=== PATIENT | male | born 1940 | race Caucasian/White ===

== ENCOUNTER → 2020-07-13 | Outpatient (CLI) | payer BC ==
[~2020-07-13] VITALS: Ht 182.9 cm; Wt 90.7 kg
[2020-07-13] VITALS (10 sets, daily range): BP systolic 94–168; BP diastolic 60–70
[~2020-07-13] MED LIST: ADULT LOW DOSE81 MG PO; BENTYL 10 MG CA10 M1 PO; FLOMAX0.4 MG PO; LISINOPRIL5 MG PO; NEURONTIN600 MG PO; NITROSTAT0.4 M1 SUBLING; PROBIOTIC-10 11 EACH PO; PROTONIX40 M2 PO; SIMVASTATIN40 MG PO; THERA-M TABLET1 EACH PO; ZANAFLEX4 M1 PO
[2020-07-13 07:54] LABS: HEMATOCRIT 34.8 % (42.0-52.0); HEMOGLOBIN 12.3 gm/dL (14.0-18.0); MCH 33.9 pg (26.0-34.0); MCHC 35.2 g/dL (28.0-37.0); MCV 96.3 fL (80.0-100.0); MPV 6.6 fl. (7.2-11.1); RBC 3.62 mil/uL (4.50-6.00); WBC 7.7 thou/uL (4.0-11.0)
[2020-07-13 08:04] LABS: ALBUMIN 3.5 g/dL (3.4-5.0); ALKALINE PHOSPHATASE 60 U/L (46-116); ANION GAP 9 mmol/L (7-16); BUN 22 mg/dL (7-18); CALCIUM 9.1 mg/dL (8.5-10.1); CHLORIDE 105 mmol/L (98-107); CHOLESTEROL 140 mg/dL (<200); CO2 28 mmol/L (21-32); CREATININE 1.2 mg/dL (0.6-1.3); GLUCOSE 110 mg/dL (70-99); HDL CHOLESTEROL 47 mg/dL (>40); LDL CHOLESTEROL 59 mg/dL (<100); POTASSIUM 4.1 mmol/L (3.5-5.1); SGOT 26 U/L (15-37); SGPT 37 U/L (30-65); SODIUM 142 mmol/L (136-145); TOTAL BILIRUBIN 0.2 mg/dL (<0.1-1.0); TOTAL PROTEIN 6.8 g/dL (6.4-8.2); TRIGLYCERIDE 170 mg/dL (<150); VLDL 34 mg/dL (<40)
[2020-07-13 08:05] LABS: SERUM ASSESSMENT Clear
[2020-07-13 08:06] LABS: APTT 22.2 Seconds (25.0-31.3); PROTIME 10.5 Seconds (9.20-11.50)
--- NOTE | 2020-07-13 10:35 | EKG ---
[place] [address] ELECTROCARDIOGRAM REPORT Name: DENI RUSH Room: [facility]#: [id number] Admission: 07/13/20 Attend Phys: Rickie Santos MD Discharge: Date of : 36 Date of Service: 07/13/20 0747 Report #: [id number] THIS REPORT FOR: //name// [facility] Test Date: 2020-07-13 Test Time: 07:47:44 Pat Name: DENI RUSH Department: Room: Gender: Drilling Supervisor: : 1940 Requested By: Rickie Santos Order Number: [id number] Reading MD: Rickie Santos Measurements Intervals [place] Rate: 62 P: 58 MS: 296 QRS: -32 QRSD: 97 T: 29 QT: 425 QTc: 432 Interpretive Statements Sinus rhythm Prolonged MS interval Left axis deviation Baseline wander in lead(s) II,III,aVR,aVF No previous ECG available for comparison Electronically Signed On 07-13-2020 10:35:13 CDT by Rickie Santos [email or web address] <ELECTRONICALLY SIGNED> By: Rickie Santos MD, [facility] 07/13/20 1035 0747 0747 Rickie Santos MD, [facility] /EPI
--- NOTE | 2020-07-13 16:00 | H ---
[place] [address] HISTORY AND PHYSICAL Name: DENI RUSH Room: [facility]#: [id number] Admission: 07/13/20 Attend Phys: Rickie Santos MD, F Discharge: Date of : 36 Report #: [id number] THIS REPORT FOR: cc: Boni Brady MD,Boni Santos,Rickie Farrell MD [facility] ~ DOC #: [id number] cc: MD Rickie Arizmendi MD [facility] DATE OF SERVICE: 07/13/2020 CARDIOLOGY HISTORY AND PHYSICAL HISTORY OF PRESENT ILLNESS: The patient is an 80-year-old white male who was brought to the outpatient department to undergo repeat cardiac catheterization. The patient apparently initially presented back in 2000. He was found to have coronary artery disease and Dr. Onel Peck placed a bare-metal stent in his LAD and right coronary artery. He then presented in 2012 with recurrent chest pain and Dr. Peck placed a stent in his LAD at [facility]. He has done well since that time. He stays very active. His last stress test in 2018 was done with radioisotope imaging and showed no evidence of ischemia with normal ejection fraction. However, recently he notes that for the past several weeks, when he exerts himself such as mowing the yard, he develops a discomfort in his chest that is relieved with rest. He has not had to take nitroglycerin. No associated nausea, shortness of breath, diaphoresis. He has had no fever, cough, bleeding, trauma to his chest or rash. He does get short of breath when he overexerts himself. He has also had a discomfort when he rides a stationary bicycle at home. He denies any palpitations or syncope. He was seen by my nurse practitioner on 07/01 who recommended he undergo repeat cardiac catheterization. PAST MEDICAL HISTORY: Otherwise significant to back surgery, bladder surgery, hypertension, hyperlipidemia. MEDICATIONS: Include aspirin, Neurontin, lisinopril, Protonix, simvastatin, Flomax, Zanaflex, tramadol. ALLERGIES: HE HAS PREVIOUS INTOLERANCE TO CLINDAMYCIN AND ULTRAM. FAMILY HISTORY: Mother and father both . SOCIAL HISTORY: Retired from [employer], lives in [place], [place]. No smoking. Used to occasionally drink alcohol. REVIEW OF SYSTEMS: No history of stroke, asthma. He has sleep apnea, uses [address] [place] [address] HISTORY AND PHYSICAL Name: DENI RUSH Room: [facility]#: [id number] Admission: 07/13/20 Attend Phys: Rickie Santos MD, F Discharge: Date of : 36 Report #: [id number] CPAP. No history of liver disease, kidney disease, cancer, psychiatric illness, chronic skin condition. PHYSICAL EXAMINATION: GENERAL: Revealed an elderly male, appeared in no distress. VITAL SIGNS: Blood pressure 130/60, pulse is 60. HEENT: He was anicteric. Conjunctivae pink. Mucosa is moist. NECK: Veins not distended. No carotid bruits. Neck supple. CHEST: Clear to auscultation. CARDIAC: Regular rate and rhythm. Grade 4 systolic ejection murmur at left sternal border. ABDOMEN: Soft. EXTREMITIES: Had no edema. Posterior tibial pulse 1+ bilaterally. SKIN: Cool and dry. NEUROLOGIC: Nonfocal. LABORATORY DATA: In 2019 included a BUN of 17, creatinine 1.2. Lipid profile in 2019, cholesterol 126, triglyceride 133, HDL 39, LDL 66. Previous hemoglobin 11.8. His carotid Doppler study in 2019 showed less than 50% stenosis. IMPRESSION AND RECOMMENDATIONS: 1. Crescendo angina. Recommend repeat cardiac catheterization. 2. Hypertension. The patient is on DANIS inhibitor. 3. Hyperlipidemia. The patient is on a statin drug. 4. Sleep apnea. 5. Mild carotid stenosis. 6. Chronic back pain. Rickie Santos MD [facility] [place] [place] <ELECTRONICALLY SIGNED> By: Rickie Santos MD, [facility] 07/13/20 1600 0735 [id number] Santos MD, FAC /nt
--- NOTE | 2020-07-13 17:13 | CARD ---
[address] [address] CARDIAC CATH REPORT Name: DENI RUSH Room: [facility].#: [id number] Admission: 07/13/20 Attend Phys: Rickie Santos MD, F Discharge: Date of : 36 Report #: [id number] THIS REPORT FOR: cc: Boni Brady MD,Boni Santos,Rickie Farrell MD [facility] ~ APPROVED REPORT Study performed: 07/13/2020 08:25:33 Patient Details Patient Status: Out-Patient Room #: The patient is a 80 year-old male Event Personnel Rickie Santos Oncology Consultant, Angeles Zuniga RN RN, Gabino Chau RTR Scrub, Yelena Cheung RTR Monitor, German Reyes ANODE ADJUSTER Monitor Procedures Performed Art Access - R radial artery Left Heart Cath w/or w/o Coronaries Hemostasis with Hemoband, aortic root injection Indication Chest pain, Murmur Risk Factors Hypercholesterolemia, Coronary Artery DiseaseHypertension Previous Procedures/Diagnoses Previous PCI Admission/Lab Medications/Medications given during procedure Heparin Unfract., Oxygen Nasal cannula 2 l per min, 0.9% Sodium Chloride IV 75 ml per hr, Lidocaine Subcut 8 ml, Nitroglycerin IA 400 mcg, Verapamil IA 5 mg, Heparin IV 5000 units Procedure Narrative The patient was brought electively to the Cardiac Catheterization Laboratory and was prepped and draped in a sterile manner. The right wrist was infiltrated with 2% Lidocaine subcutaneous anesthesia. IV conscious sedation was used throughout procedure with appropriate monitoring and was performed in the presence of a registered nurse who was an independent trained observer [place] [address] CARDIAC CATH REPORT Name: DENI RUSH Room: [facility]#: [id number] Admission: 07/13/20 Attend Phys: Rickie Santos MD, F Discharge: Date of : 36 Report #: [id number] performing the procedure. A Slender Glidesheath sheath was inserted into the right radial artery. Coronary angiography was performed using coronary diagnostic catheters. The right coronary system was accessed and visualized with a Diagnostic 6 Fr JR 4 catheter. The left coronary system was accessed and visualized with a Diagnostic 6 Fr JL 4 catheter. The left ventricle was accessed and visualized with a Diagnostic 6 Fr Pigtail catheter. Left ventricular/Aortic Valve gradient assessed via catheter pullback. Left ventriculogram was performed in ALONZO projection. An aortogram of the ascending aorta was performed. Closure device was deployed with a 6 Fr Vasc-Band Lng 27cm. The patient tolerated the procedure well and there were no complications associated with the procedure. There was no hematoma. Aortic valve was crossed using an exchange length glide wire inserted through a JR4 catheter. Aortic root injection was performed using a pigtail catheter. Intraoperative Conscious Sedation Sedation start time: 836 Case end Time: 905 Versed 2 mg Fluoro Time: 4.5 minutes Dose: DAP 48910 cGycm2 973 mGy Contrast Type and Amount: Omnipaque 140 ml Coronary Angiography The patient's coronary anatomy is right dominant. Diagnostic Cath Left Main 0% stenosis LAD Stents in the proximal and mid LAD had a 30% restenosis. Diagonal 1 small vessel with a 80% ostial stenosis Circumflex 30% ostail stenosis Right Coronary 30% proximal stenosis R PDA Mid stent had 0% restenosis Left Ventriculography The left ventricular ejection fraction is estimated to be >70%. Left ventricular wall motion abnormalities are not present. There is no mitral insufficiency. No aortic insufficiency was noted Hemodynamics The aortic pressure is 140/56 mmHg with a mean of 85 [place] [address] CARDIAC CATH REPORT Name: DENI RUSH Room: [facility]#: [id number] Admission: 07/13/20 Attend Phys: Rickie Santos MD, F Discharge: Date of : 36 Report #: [id number] ventricular pressure is 167/10 mmHg with a mean of mmHg. The left ventricular end diastolic pressure is 14 mmHg. Pullback from the left ventricle to the aorta revealed a 20 mm gradient across the aortic valve. Conclusion 1. no restenosis noted of stents in the proximal LAD and distal RCA 2. LVEF greater than 70% 3. No aortic insufficiency noted 4. Mild aortic valve stenosis noted 5. suspect noncardiac chest pain Recommendations [facility] <ELECTRONICALLY SIGNED> By: Rickie Santos MD, FACC 07/13/201711 11 1712Droxanne Santos MD, FAC /INF
== END | disposition home or self-care (01) ==
LOC: M.CL 06:58
PROVIDERS: ATTEND Internal Medicine Cardiovascular Disease
DX: R07.9 Chest pain, unspecified (principal); I25.10 Atherosclerotic heart disease of native coronary artery without angina pectoris; I35.0 Nonrheumatic aortic (valve) stenosis; R01.1 Cardiac murmur, unspecified; I10 Essential (primary) hypertension; N40.0 Benign prostatic hyperplasia without lower urinary tract symptoms; E78.00 Pure hypercholesterolemia, unspecified; E78.5 Hyperlipidemia, unspecified; G47.30 Sleep apnea, unspecified; Z98.890 Other specified postprocedural states; Z79.899 Other long term (current) drug therapy; Z88.8 Allergy status to other drugs, medicaments and biological substances; Z90.49 Acquired absence of other specified parts of digestive tract; Z79.82 Long term (current) use of aspirin